=== PATIENT | female | born 1950 | race Caucasian/White ===

== ENCOUNTER 2020-10-31 21:49 | Emergency (ER) | payer OTHER ==
[~2020-10-31] VITALS: Ht 157.5 cm; Wt 54.4 kg
[2020-10-31 22:00] VITALS: BP_SYST 216
--- NOTE | 2020-10-31 22:00 | NUR ---
PT TO BED 4 FOR EVALUATION. REPORT GIVEN TO TANI INGRAM WHO WILL ASSUME CARE.
--- NOTE | 2020-10-31 22:10 | NUR ---
Dr. Goetz bedside for pt eval
[2020-10-31] MEDS ORDERED: ITRA100C PO (22:13)
--- NOTE | 2020-10-31 22:20 | NUR ---
Pt BIB family to ED C/O elevated blood pressure at home today. It was 215/105 mmHg. 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 Patient decision to come to the emergency department was based on her observation that her blood pressure at home was exceedingly elevated. She has had frontal headaches for the past 1 week. Headaches are mild, intermittent. They have never been sudden or severe. Patient denied shortness of breath, chest pain, dizziness, feeling faint, loss of consciousness, trauma, abdominal pain, motor weakness or any other symptoms
[2020-10-31] MEDS ORDERED: hydrALAZINE HCL 20 MG/ML VIAL ONE (22:37)
[2020-10-31] MEDS ORDERED: hydrALAZINE HCL 20 MG/ML VIAL IVP ONE (22:45)
--- NOTE | 2020-10-31 22:49 | NUR ---
Hydralazine IV effective AEB current BP of 177/81, Pt states " feeling little bit better "
[2020-10-31 22:54] LABS: BASOPHILS % (AUTO) 0.3 % (0.0-2.0); EOSINOPHILS # (AUTO) 0.1 K/uL (0.0-0.4); EOSINOPHILS % (AUTO) 1.6 % (0.0-4.0); HEMATOCRIT 44.8 % (36-48); HEMOGLOBIN 15.2 g/dL (12.0-16.0); LYMPHOCYTES # (AUTO) 1.1 K/uL (1.0-5.5); LYMPHOCYTES % (AUTO) 21.4 % (20.5-51.5); MEAN CORPUSCULAR HEMOGLOBIN 34 pg (27-31); MEAN CORPUSCULAR HGB CONC 34 % (32-36); MEAN CORPUSCULAR VOLUME 98 fL (79.0-98.0); MONOCYTES # (AUTO) 0.5 K/uL (0.0-1.0); NEUTROPHILS # (AUTO) 3.6 K/uL (1.8-7.7); NEUTROPHILS % (AUTO) 66.7 % (40.0-70.0); PLATELET COUNT (AUTO) 298 K/uL (130-430); RED BLOOD CELL COUNT(AUTO) 4.55 MIL/uL (4.2-6.2); RED CELL DISTRIBUTION WIDTH 13.2 % (9.0-15.0); WHITE BLOOD COUNT (AUTO) 5.4 K/uL (4.8-10.8)
[2020-10-31 22:58] LABS: CALCIUM 8.8 mg/dL (8.4-11.0); CREATININE 0.91 mg/dL (0.55-1.30); POTASSIUM 3.6 mmol/L (3.5-5.1)
[2020-10-31 23:04] LABS: TOTAL BILIRUBIN 0.7 mg/dL (0.0-1.0)
[2020-10-31 23:27] LABS: BILIRUBIN,URINE NEGATIVE (NEGATIVE); BLOOD, URINE NEGATIVE (NEGATIVE); CLARITY/URINE CLEAR (CLEAR); COLOR,URINE YELLOW (YELLOW); GLUCOSE,URINE NEGATIVE (NEGATIVE); KETONES,URINE NEGATIVE (NEGATIVE); LEUKOCYTE ESTERASE ,URINE NEGATIVE (NEGATIVE); NITRITE, URINE NEGATIVE (NEGATIVE); PROTEIN URINE TRACE (NEGATIVE); UROBILINOGEN,URINE 0.2 (0.2-1.0)
--- NOTE | 2020-10-31 23:35 | NUR ---
VSS no s/s of acute distress Resting on gurney rails up
[2020-11-01 00:40] VITALS: BP_SYST 174
== END 2020-11-01 00:40 | disposition home or self-care (01) ==
LOC: SED 21:49
DX: I10 Essential (primary) hypertension (principal); Z88.0 Allergy status to penicillin; Z79.899 Other long term (current) drug therapy
CPT/HCPCS: 36415; 80053; 81003; 85025; 93005; 96374; 99284; J0360

== ENCOUNTER 2020-12-27 00:56 | Emergency (ER) | payer OTHER ==
[~2020-12-27] VITALS: Ht 157.5 cm; Wt 53.5 kg
[~2020-12-27 00:56] MED LIST: ITRA100C PO
[2020-12-27 01:10] VITALS: BP_SYST 174
--- NOTE | 2020-12-27 01:12 | NUR ---
Seen and examined by Dr. Paz, ER Attending
[2020-12-27] MEDS ORDERED: cloNIDine HCL 0.1 MG TABLET PO ONE (01:30)
[2020-12-27] MEDS ORDERED: CLON0.1T PO (01:33)
--- NOTE | 2020-12-27 01:41 | NUR ---
Medicatin given as ordered, [facility] teaching provided and verbalized understanding
[2020-12-27 01:45] VITALS: BP_SYST 174
--- NOTE | 2020-12-27 01:45 | NUR ---
Patient given written and verbal discharge instructions and verbalizes understanding. ER MD discussed with patient the results and treatment provided. Patient in stable condition. ID arm band removed. Rx of CLONIDINE given. Patient educated to follow up with PMD. Pain Scale 0/10. Opportunity for questions provided and answered. Medication side effect fact sheet provided.
== END 2020-12-27 01:45 | disposition home or self-care (01) ==
LOC: SED 00:56
DX: I10 Essential (primary) hypertension (principal); Z88.0 Allergy status to penicillin; Z79.899 Other long term (current) drug therapy
CPT/HCPCS: 99283